=== PATIENT | male | born 1995 ===

== ENCOUNTER 2017-06-08 23:17 | Emergency (ER) | payer SELFPAY ==
[2017-06-08 23:43] VITALS: TEMP 98.8; O2SAT 99
--- NOTE | 2017-06-09 01:06 | C.PDOC ---
History Of Present Illness 21 year old male presents to the ER with a complaint of right hand pain after he "slammed the car door shut" on his hand. Denies weakness or numbness. Patient is right hand dominant Time Seen by Provider: 06/08/17 23:49 Chief Complaint (Nursing): Finger,Hand,&Wrist History Per: Patient History/Exam Limitations: no limitations Onset/Duration Of Symptoms: Hrs Current Symptoms Are (Timing): Still Present Exacerbating Factor(s): Strenuous Use Of Affected Area Recent travel outside of the [place]: No Past Medical History Reviewed: Historical Data, Nursing Documentation, Vital Signs Vital Signs: Last Vital Signs Temp 98.8 F 06/08/17 23:39 Pulse 75 06/09/17 01:42 Resp 18 06/09/17 01:42 BP 128/72 06/09/17 01:42 Pulse Ox 99 06/09/17 06:33 Family History: States: Unknown Family Hx - Social History Hx Alcohol Use: No Hx Substance Use: No - Immunization History Hx Influenza Vaccination: No Hx Pneumococcal Vaccination: No Review Of Systems Musculoskeletal: Positive for: Hand Pain Skin: Negative for: Lesions Neurological: Negative for: Weakness, Numbness Physical Exam - Physical Exam Appears: Non-toxic, No Acute Distress Skin: Normal Color, Warm, Dry, No Rash Head: Atraumatic, Normacephalic Eye(s): bilateral: Normal Inspection, PERRL, EOMI Oral Mucosa: Moist Extremity: Normal ROM (x4), Capillary Refill (<2 seconds), No Deformity, Other ( Swelling and tenderness to dorsal and lateral MCP of the right first digit.) Pulses: Left Radial: Normal, Right Radial: Normal Neurological/Psych: Oriented x3, Normal Speech, Normal Motor, Normal Sensation Gait: Steady ED Course And Treatment O2 Sat by Pulse Oximetry: 99 (Room air) Pulse Ox Interpretation: Normal - Other Rad Right hand x-ray X-Ray: Interpreted by Me, Viewed By Me Interpretation: Fracture to 5th metacarpal. Medical Decision Making Medical Decision Making: Right hand x-ray ordered. Tylenol administered. Patient placed in ulnar gutter splint by SOFYA Moralez and discharged home with instructions to follow up with hand specialist or return if symptoms worsen. Disposition - Disposition Referrals: Nando Castaneda MD [Staff Provider] - [facility] [Outside] Disposition: HOME/ ROUTINE Disposition Time: 01:03 Condition: GOOD Additional Instructions: Follow up with the Orthopedist/Ortho clinic within 1-2 days without fail. Return if worsened. Prescriptions: Acetaminophen [Tylenol] 325 mg PO Q6 PRN #30 tab PRN Reason: Pain, Mild (1-3) Instructions: [facility] Forms: [employer] (Bahamian) - Clinical Impression Clinical Impression: Boxers fracture - PA / [facility] / Resident Statement MD/DO has reviewed & agrees with the documentation as recorded. - Scribe Statement The provider has reviewed the documentation as recorded by the Scribe Renato Tanner All medical record entries made by the Sangeetaibtoya were at my direction and personally dictated by me. I have reviewed the chart and agree that the record accurately reflects my personal performance of the history, physical exam, medical decision making, and the department course for this patient. I have also personally directed, reviewed, and agree with the discharge instructions and disposition.
[2017-06-09 01:43] VITALS: BP 128/72; PULSE 75; RESP 18
--- NOTE | 2017-06-09 08:53 | RAD ---
PROCEDURE: Right Hand Radiographs. HISTORY: r/o fx COMPARISON: None. FINDINGS: BONES: A 5th mid metacarpal shaft fracture with minimal dorsal angulation of the fracture apex suggested. Cortical offset are fractured ends approximately 1 mm. No further displacement suggested. Bone island distal radius JOINTS: Normal. No osteoarthritic changes. SOFT TISSUES: Soft tissue swelling over 5th metacarpal fracture site OTHER FINDINGS: None. IMPRESSION: Fifth metacarpal fracture with mild dorsal apical angulation and 1 mm displacement/cortical offset of fractured ends.
== END 2017-06-09 01:43 | disposition home or self-care (01) ==
LOC: C.ER 23:17
DX: S62.306A Unspecified fracture of fifth metacarpal bone, right hand, initial encounter for closed fracture (principal); W23.0XXA Caught, crushed, jammed, or pinched between moving objects, initial encounter; Y92.89 Other specified places as the place of occurrence of the external cause